=== PATIENT | female | born 1980 | race Caucasian/White ===

== ENCOUNTER 2017-04-20 13:31 | Day surgery (SDC) | payer MEDICAID, OTHER ==
[2017-04-20] MEDS ORDERED: LR 1,000 ML IV ONE (14:06)
[2017-04-20] MEDS ORDERED: LIDOCAINE 1% 2 ML INJ ID PRN (14:06)
--- NOTE | 2017-04-20 15:29 | PDGENHP ---
History & Physical Chief Complaint: Rectal bleeding History of Present Illness: 1.5 years of rectal bleeding. Pertinent Past, Social, Family History: GEN: NAD. Cardiac: RRR. Lungs: CTA B
[2017-04-20] MEDS ORDERED: PROPOFOL/EMULSION 500 MG/50 ML BOTTLE IV ONE (15:33)
[2017-04-20] MEDS ORDERED: ONDANSETRON 4 MG/2 ML VIAL IVP PRN (15:43)
[2017-04-20] MEDS ORDERED: NALOXONE HCL 0.4 MG/ML INJ IVP PRN (15:43)
--- NOTE | 2017-04-20 15:44 | PDANEPAE ---
ANE History of Present Illness Patient presents for Colonoscopy ANE Past Medical History - Cardiovascular History Hx Hypertension: No Hx Arrhythmias: No Hx Chest Pain: No Hx Coronary Artery / Peripheral Vascular Disease: No Hx CHF / Valvular Disease: No Hx Palpitations: No - Pulmonary History Hx COPD: No Hx Asthma/Reactive Airway Disease: No Hx Recent Upper Respiratory Infection: No Hx Oxygen in Use at Home: No - Neurologic History Hx Cerebrovascular Accident: No Hx Seizures: No Hx Dementia: No - Endocrine History Hx Diabetes: No - Renal History Hx Renal Disorders: No - Liver History Hx Hepatic Disorders: No - Neurological & Psychiatric Hx Hx Neurological and Psychiatric Disorders: No - Cancer History Hx Cancer: No - Congenital Disorder History Hx Congenital Disorders: No - GI History Hx Gastrointestinal Disorders: Yes - Chronic Pain History Chronic Pain: No ANE Review of Systems - Exercise capacity METS (RN): 5 METS ANE Patient History - Allergies Allergies/Adverse Reactions: No Known Allergies Allergy (Unverified 03/22/17 10:12) - Home Medications Home Medications: NK [No Known Home Meds] 03/22/17 [Last Taken Unknown] - NPO status NPO Since - Liquids (Date): 04/20/17 NPO Since - Liquids (Time): 11:30 NPO Since - Solids (Date): 04/19/17 NPO Since - Solids (Time): 11:30 - Smoking Hx Smoking Status: Current some day smoker ANE Labs/Vital Signs - Vital Signs Blood Pressure: 119/72 Heart Rate: 99 Respiratory Rate: 16 O2 Sat (%): 95 Height: 161.29 cm Weight: 56.699 kg ANE Physical Exam - Airway Neck exam: FROM Mallampati Score: Class 1 Mouth exam: normal dental/mouth exam - Pulmonary Pulmonary: no respiratory distress - Cardiovascular Cardiovascular: regular rate and rhythym - ASA Status ASA Status: I ANE Anesthesia Plan Anesthesia Plan: GA with mask (RBA discussed. Patient agrees to proceed)
--- NOTE | 2017-04-20 16:10 | POSTANESTH ---
Post Anesthetic Evaluation Cardiovascular Status: Normal, Stable Respiratory Status: Normal, Stable Level of Consciousness/Mental Status: Can Participate in Eval Pain Control: Adequate, Prn Tx Ordered Nausea/Vomiting Control: Adequate, Prn Tx Ordered Complications Possibly Related to Anesthesia: None Noted
[2017-04-20 16:36] VITALS: TEMP 98.4
[2017-04-20 16:45] VITALS: PULSE 78; RESP 16; O2SAT 99
[2017-04-20 17:00] VITALS: BP 116/67
--- NOTE | 2017-04-20 19:49 | GPN ---
[f rep st] PROCEDURE NOTE PREPROCEDURE DIAGNOSIS: Hematochezia. POSTPROCEDURE DIAGNOSIS: External hemorrhoids. MEDICAL PROCEDURE: Colonoscopy. MEDICATIONS: Monitored anesthesia care. INDICATIONS: The patient is a 36-year-old female with a history of hematochezia who is here for col onoscopy for further evaluation. The risks and benefits of the procedure were discussed with the corry vrea and consent obtained. Risks include, but not limited to, bleeding, perforation, sedation. Th e patient is ASA class 1. PROCEDURE: The adult colonoscope was advanced into the terminal ileum, which appears normal. The i leocecal valve, appendiceal orifice, cecum, ascending colon, hepatic flexure, transverse colon, sple harriet flexure, descending colon, sigmoid colon, and rectum are normal. Retroflexed views in the rectu m are normal. External anal exam shows external hemorrhoids. She has no obvious anal fissure. IMPRESSION: External hemorrhoids, otherwise normal colonoscopy including terminal ileum. RECOMMENDATIONS: 1. Recommend a hydrocortisone cream externally twice per day for 14 days. 2. Advance diet as tolerated. 3. Discharge to home with escort. 4. Repeat colonoscopy at age 51 for screening purposes. No recall. 5. Follow up in our GI clinic as previously scheduled. Thank you for allowing me to participate in the care of your patient. Please do not hesitate to jayna call with questions. /[id number]/MODL
== END 2017-04-20 17:02 | disposition home or self-care (01) ==
LOC: FSGY 13:31
PROVIDERS: ATTEND Internal Medicine Gastroenterology
PROC: 0DJD8ZZ Inspection of Lower Intestinal Tract, Via Natural or Artificial Opening Endoscopic (ICD-10-PCS; principal; 2017-04-20 16:15)
DX: K64.4 Residual hemorrhoidal skin tags (principal)
CPT/HCPCS: J2704

== ENCOUNTER → 2017-11-15 | Outpatient (CLI) | payer MEDICAID | LOC: FIMAGING 10:08 | DX: N63.20 Unspecified lump in the left breast, unspecified quadrant (principal) ==